=== PATIENT | female | born 1965 | race Caucasian/White ===

== ENCOUNTER 2016-10-08 10:56 | Day surgery (SDC) | payer MEDICAID ==
[~2016-10-08] VITALS: Ht 157.5 cm; Wt 81.8 kg
[2016-10-08 12:09] LABS: BASOPHILS 0.2 % (0.0-2.0); HEMATOCRIT 43.1 % (36.0-48.0); HEMOGLOBIN 14.6 g/dL (12-16); IMMATURE GRANULOCYTES 0.2 % (0-5); LYMPHOCYTES 45.5 % (15-50); MCH 31.8 pg (26.0-34.0); MCHC 33.9 g/dL (31.0-37.0); MCV 93.9 fL (80.0-100.0); MEAN PLATELET VOLUME 10.9 fL (7.4-10.4); MONOCYTES 6.5 % (2-11); NEUTROPHILS 46.6 % (40-80); PLATELET COUNT 114 10x3/uL (130-400); RBC 4.59 10x6/uL (4.00-5.40); RDW 12.5 % (11.5-14.5); WBC 5.8 10x3/uL (4.8-10.8)
[2016-10-08 12:18] LABS: INR 1.02 (0.85-1.17); PROTIME 13.3 SECONDS (11.6-15.0)
[2016-10-08 12:26] LABS: ALBUMIN 3.3 g/dL (3.4-5.0); ANION GAP 10.5 mmol/L (8-16); BILIRUBIN - TOTAL 0.5 mg/dL (0.2-1.3); CALCIUM 9.4 mg/dL (8.5-10.1); CARBON DIOXIDE 32.3 mmol/L (21.0-32.0); POTASSIUM - SERUM 3.8 mmol/L (3.5-5.1); PROTEIN - SERUM 7.2 g/dL (6.4-8.2)
[2016-10-08] MEDS ORDERED: ABILIFY20 MG PO (12:37)
[2016-10-08] MEDS ORDERED: ALBUTEROL1.25 MG/3 INH (12:37)
[2016-10-08] MEDS ORDERED: DICLOFENAC SODI50 MG PO (12:38)
[2016-10-08] MEDS ORDERED: COMBIVENT RESPIM4 GM INH (12:38)
[2016-10-08] MEDS ORDERED: NEURONTIN 300300 MG PO (12:39)
[2016-10-08] MEDS ORDERED: KEPPRA500 MG PO (12:39)
[2016-10-08] MEDS ORDERED: REMERON45 MG PO (12:39)
[2016-10-08] MEDS ORDERED: EFFEXOR37.5 MG PO (12:40)
[2016-10-08] MEDS ORDERED: OXYCODONE HCL E20 MG PO (12:40)
[2016-10-08] MEDS ORDERED: TRAZODONE HCL150 MG PO (12:40)
[2016-10-08] MEDS ORDERED: BACLOFEN20 M1 PO (12:41)
[2016-10-08 12:47] VITALS: BP 97/67; Ht 157.5 cm; Wt 81.8 kg
--- NOTE | 2016-10-08 14:25 | NUR ---
REPORT FROM DANIEL MARCANO. PT SITTING WITH HOB ELEVATED. ON 2L O2 NC, PT WITH COPD/SMOKING HISTORY, SAT @ 94%. VSS. NO C/O PAIN OR THROAT SORENESS. FULL LIQUIDS OFFERED, COFFEE REQUESTED. WILL MONITOR.
--- NOTE | 2016-10-08 15:42 | NUR ---
PT SITTING UP IN BED. 1525- IV D/C'D, PT TOLERATED 1530- DISCHARGE INSTRUCITON COMPLETED AND SIGNED. PT VERBALIZED UNDERSTANDING. 1540- D/C'D VIA WHEELCHAIR WITH BROTHER.
--- NOTE | 2016-10-20 12:04 | OP ---
PATIENT NAME: PREMA SÁNCHEZ MEDICAL RECORD: [id number] :61 LOCATION:[facility] ADMISSION DATE: SURGEON: LINDSAY CHAVEZ DO DATE OF OPERATION: 10/08/2016 PROCEDURE: EGD. SCOPE: Olympus video gastroscope. MEDICATIONS: An 80 mg of propofol per anesthesia. INDICATIONS: History of hepatitis C virus and esophageal variceal screening as well as epigastric pain and heartburn. FINDINGS: Informed consent was given. The patient was made comfortable with the above medication. After reaching an adequate level of sedation by slow IV push, the patient was placed in the left side. The endoscope was then advanced under direct visualization through the mouth to the second portion of the duodenum. The proximal and middle thirds of the esophagus appeared normal. In the distal third of the esophagus, there was some minimal grade I to grade II esophageal varices. There were no bleeding stigmata and no banding was performed. There was some mild reflux esophagitis noted at the GE junction. The scope was advanced into the stomach where diffuse [id number]-[id number] portal hypertensive gastropathy was visualized. The scope was retroflexed to view the cardia where a mild hiatal hernia was visualized. This was of the sliding type. Scope was then advanced down to the antrum and prepyloric region where a small superficial gastric ulcer was visualized right at the prepyloric area. The scope was advanced into the bulb and second portion of the duodenum where the mucosa was normal. The scope was then withdrawn from the patient. The patient tolerated the procedure well and there were no complications. IMPRESSION: 1. Grade I to II esophageal varices. 2. Mild reflux esophagitis at the gastroesophageal junction. 3. Portal hypertensive gastropathy. 4. Hiatal hernia. 5. Gastric ulcer. PLAN AND RECOMMENDATIONS: 1. Continue current medications. 2. Add a PPI at 40 mg equivalent daily for 8 weeks. 3. Repeat EGD in 1 year for variceal screening. 4. Follow up in the clinic as needed. TRANSINT:[id number] Voice Confirmation ID: [id number] DOCUMENT ID: [id number] LINDSAY CHAVEZ DO at 1204 CC: [id number] DICTATION DATE: 10/08/16 1402 WARP KNIT OPERATOR: 10/08/162109 [facility] 10/08/16 [facility] [address] [place] [address]
== END 2016-10-08 15:40 | disposition home or self-care (01) ==
LOC: D.OPS 10:56
PROVIDERS: Anesthesiology
DX: R10.13 Epigastric pain (principal); K44.9 Diaphragmatic hernia without obstruction or gangrene; I85.00 Esophageal varices without bleeding; K76.6 Portal hypertension; K31.89 Other diseases of stomach and duodenum; K25.9 Gastric ulcer, unspecified as acute or chronic, without hemorrhage or perforation

== ENCOUNTER 2017-02-25 13:24 | Day surgery (SDC) | payer MEDICAID ==
[~2017-02-25] VITALS: Ht 157.5 cm; Wt 83.2 kg
[~2017-02-25 13:24] MED LIST: ABILIFY20 MG PO; ALBUTEROL1.25 MG/3 INH; BACLOFEN20 M1 PO; COMBIVENT RESPIM4 GM INH; DICLOFENAC SODI50 MG PO; EFFEXOR37.5 MG PO; KEPPRA500 MG PO; NEURONTIN 300300 MG PO; OXYCODONE HCL E20 MG PO; REMERON45 MG PO; TRAZODONE HCL150 MG PO
[2017-02-25 14:27] VITALS: BP 118/68; Ht 157.5 cm; Wt 83.2 kg
[2017-02-25 14:54] LABS: HEMATOCRIT 43.9 % (36.0-48.0); HEMOGLOBIN 15.1 g/dL (12-16); MCH 31.7 pg (26.0-34.0); MCHC 34.4 g/dL (31.0-37.0); MEAN PLATELET VOLUME 10.1 fL (7.4-10.4); RBC 4.77 10x6/uL (4.00-5.40); RDW 12.7 % (11.5-14.5); WBC 8.5 10x3/uL (4.8-10.8)
[2017-02-25 15:04] LABS: APTT 30.4 SECONDS (22.8-39.4); INR 1.06 (0.85-1.17); PROTIME 13.6 SECONDS (11.6-15.0)
--- NOTE | 2017-02-25 15:56 | NUR ---
1550 BACK FROM COLONOSCOPY. RESP EVEN AND NONLABORED. PASSED AIR.
--- NOTE | 2017-02-25 16:34 | NUR ---
1600 PASSED FLATUS. FULL LIQUIDS SERVED.
--- NOTE | 2017-02-25 16:41 | NUR ---
1630 IV DCD CATHETER INTACT. DISCHARGE INSTRUCTIONS GIVEN.
--- NOTE | 2017-02-25 16:43 | NUR ---
7296 TO HOME VIA W/C.
--- NOTE | 2017-03-01 08:17 | OP ---
PATIENT NAME: PREMA SÁNCHEZ MEDICAL RECORD: [id number] :61 LOCATION:[facility] ADMISSION DATE: SURGEON: LINDSAY CHAEVZ DO DATE OF OPERATION: 02/25/2017 PROCEDURE: Colonoscopy. INDICATIONS: Left lower quadrant abdominal pain and chronic constipation. SCOPE: Olympus video pediatric colonoscope. MEDICATIONS: Propofol 300 mg IV per anesthesia. WITHDRAWAL TIME: 13 minutes. ESTIMATED BLOOD LOSS: None. COMPLICATIONS: None. FINDINGS: Informed consent was given. The patient was made comfortable with the above medication. After reaching an adequate level of sedation by slow IV push, the patient was placed on her left side. A digital rectal examination was performed and was normal. The endoscope was then advanced under direct visualization through the rectum to the cecum with visualization of the appendiceal orifice and ileocecal valve. The scope was slowly withdrawn and mucosa was carefully examined. The prep quality on this examination was poor. The obrien of the colon were clean and visualized, but there were sections of bowel that were full of liquid with solid material that could not be suctioned. This made visualization of all of the obrien impossible. Of what segments could be seen, there were no polyps, diverticula or any other abnormalities. The endoscope was retroflexed in the rectum with a normal-appearing rectal wall. The scope was withdrawn from the patient. The patient tolerated the procedure well and there were no complications. IMPRESSION: Inadequate prep, otherwise normal colonoscopy. PLAN AND RECOMMENDATIONS: 1. Discharge home when recovery parameters are met. 2. Recall colonoscopy in 1 year. 3. Notify the GI clinic if symptoms return. At this time, she denies any left lower quadrant abdominal pain or constipation. 4. We will plan for a colonoscopy in 1 year's time for screening of malignant neoplasms. TRANSINT:[id number] Voice Confirmation ID: [id number] DOCUMENT ID: [id number] LINDSAY CHAVEZ DO at 0817 CC: [id number] DICTATION DATE: 02/25/17 1537 TRANSPORTATION DIRECTOR: 02/25/17 1938 [facility] 02/25/17 [place] [address]
== END 2017-02-25 16:35 | disposition home or self-care (01) ==
LOC: D.OPS 13:24
PROVIDERS: Anesthesiology
DX: R10.32 Left lower quadrant pain (principal); K59.09 Other constipation; J44.9 Chronic obstructive pulmonary disease, unspecified; Z01.812 Encounter for preprocedural laboratory examination

== ENCOUNTER 2017-11-10 13:04 | Day surgery (SDC) | payer MEDICARE ==
[~2017-11-10] VITALS: Ht 157.5 cm; Wt 75.5 kg
--- NOTE | ~2017-11-10 | OP ---
PATIENT NAME: PREMA SÁNCHEZ MEDICAL RECORD: [id number] :61 LOCATION:[facility] ADMISSION DATE: SURGEON: LINDSAY CHAVEZ DO DATE OF OPERATION: 11/10/2017 PROCEDURE: EGD. INDICATIONS: Esophageal varices surveillance. Her last endoscopy was 10/08/2016. SCOPE: Olympus video gastroscope. MEDICATIONS: Propofol 250 mg IV per anesthesia. ESTIMATED BLOOD LOSS: None. COMPLICATIONS: None. FINDINGS: Informed consent was given. The patient was made comfortable with the above medication. After reaching an adequate level of sedation by slow IV push, the patient was placed on her left side. The endoscope was advanced under direct visualization through the mouth to the second portion of the duodenum. The upper, middle, and lower thirds of the esophagus appeared normal without obvious evidence of esophageal varices. At the GE junction, there was some mild [place] class A reflux-induced esophagitis. The endoscope was advanced beyond the GE junction into the stomach and retroflexed to view the cardia which revealed a small sliding hiatal hernia. The mucosa of the entire stomach appeared normal other than some congestion and some erythema. Appearances were consistent with mild portal hypertensive gastropathy. There were no ulcers or erosions visualized on today's examination. The endoscope was advanced beyond the pylorus into the duodenum where the entire examined duodenum appeared normal. The endoscope was then withdrawn from the patient. The patient tolerated the procedure well and there were no complications. IMPRESSION: 1. [place] class A reflux-induced esophagitis. 2. Small sliding hiatal hernia. 3. Portal hypertensive gastropathy, which appears mild. PLAN AND RECOMMENDATIONS: 1. Discharge home when recovery parameters are met. 2. Continue current diet. 3. Continue current medications. 4. Follow up in GI clinic as needed. 5. Repeat EGD in 2 years for further surveillance of varices and portal hypertensive gastropathy. If, at that time, there were no varices present it may be considered to discontinue surveillance endoscopies. TRANSINT:[id number] Voice Confirmation ID: [id number] DOCUMENT ID: [id number] OPERATIVE REPORT [id number] PREMA SÁNCHEZ LINDSAY CHAVEZ DO at 0849 CC: [id number] DICTATION DATE: 11/10/17 1529 ECONOMIC GEOGRAPHER: 11/10/17 1540 DEP SDC 11/10/17 [facility] [address] [place] [address]
[2017-11-10 14:15] LABS: HEMATOCRIT 42.7 % (36.0-48.0); HEMOGLOBIN 15.2 g/dL (12-16); MCHC 35.6 g/dL (31.0-37.0); MEAN PLATELET VOLUME 9.7 fL (7.4-10.4); RBC 4.91 10x6/uL (4.00-5.40); RDW 12.7 % (11.5-14.5); WBC 8.9 10x3/uL (4.8-10.8)
[2017-11-10] MEDS ORDERED: SOMA350 MG (14:21)
[2017-11-10] MEDS ORDERED: ATIVAN1 MG PO (14:22)
[2017-11-10 14:30] VITALS: Ht 157.5 cm; Wt 75.5 kg
[2017-11-10 14:35] LABS: ALBUMIN 3.8 g/dL (3.4-5.0); ANION GAP 14.9 mmol/L (8-16); BILIRUBIN - TOTAL 0.62 mg/dL (0.2-1.3); CARBON DIOXIDE 26.8 mmol/L (21.0-32.0); POTASSIUM - SERUM 3.7 mmol/L (3.5-5.1); PROTEIN - SERUM 7.5 g/dL (6.4-8.2)
[2017-11-10 14:38] LABS: INR 1.09 (0.85-1.17); PROTIME 13.7 SECONDS (11.6-15.0)
[2017-11-10 14:39] LABS: APTT 31.5 SECONDS (22.8-39.4)
== END 2017-11-10 16:22 | disposition home or self-care (01) ==
LOC: D.OPS 13:04
PROVIDERS: Anesthesiology; Internal Medicine Gastroenterology
DX: K21.0 Gastro-esophageal reflux disease with esophagitis (principal); K44.9 Diaphragmatic hernia without obstruction or gangrene; K76.6 Portal hypertension; K31.89 Other diseases of stomach and duodenum; Z01.812 Encounter for preprocedural laboratory examination

== ENCOUNTER 2018-05-30 11:29 | Day surgery (SDC) | payer MEDICARE ==
[~2018-05-30] VITALS: Ht 157.5 cm; Wt 75.5 kg
--- NOTE | ~2018-05-30 | OP ---
PATIENT NAME: PREMA SÁNCHEZ MEDICAL RECORD: [id number] :61 [facility] ADMISSION DATE: SURGEON: LINDSAY CHAVEZ DO DATE OF OPERATION: 05/30/2018 PROCEDURE: Colonoscopy with polypectomy. INDICATION FOR PROCEDURE: Screening colonoscopy. Her last colonoscopy was on 11/10/2017 and this was an inadequate prep. SCOPE: Olympus video pediatric colonoscope. MEDICATIONS: Propofol 440 mg IV per anesthesia. WITHDRAWAL TIME: 21 minutes. ESTIMATED BLOOD LOSS: Minimal. COMPLICATIONS: None. FINDINGS: Informed consent was given. The patient was made comfortable with the above medication. After reaching an adequate level of sedation by slow IV push, the patient was placed on her left side. A digital rectal examination was performed and was normal. The endoscope was then advanced under direct visualization through the rectum to the cecum, confirmed by the presence of the appendiceal orifice and the ileocecal valve. The endoscope was slowly withdrawn and the mucosa was carefully examined. The prep quality was good. There were 5 polyps visualized on today's examination. The first was located in the cecum. There was a benign-appearing flat polyp, which appeared consistent with a sessile serrated adenoma. It measured approximately 1 cm to 1.2 cm in diameter. It was removed using endoscopic mucosal resection technique utilizing an injection of isotonic saline for a pillow. A hot snare was then used to completely remove the polyp in one piece. The surrounding tissue was cauterized further. To close the defect and prevent bleeding, a single Endoclip was used to oppose the tissue. The endoscope was then withdrawn further. In the ascending colon, there were 2 benign-appearing sessile polyps, which ranged in size from 3-6 mm in diameter. They were removed using hot forceps. In the transverse colon, there was another benign-appearing sessile polyp, which measured approximately 4 mm in diameter that was removed using hot forceps. In the descending colon, there was one more polyp, which was benign appearing and sessile. It measured approximately 3 mm in diameter. It was removed using hot forceps. Retroflexion was performed in the rectum with a normal-appearing rectal wall. The endoscope was then withdrawn from the patient. The patient tolerated the procedure well and there were no complications. IMPRESSION: Multiple polyps as described above, removed using combination of hot forceps and endoscopic mucosal resection technique. PLAN AND RECOMMENDATIONS: 1. Discharge home when recovery parameters are met. 2. Followup biopsy specimen results. 3. High-fiber diet. 4. Continue current medications. 5. Recall colonoscopy in 2 years. OPERATIVE REPORT [id number] [facility] TRANSINT:[id number] Voice Confirmation ID: [id number] DOCUMENT ID: [id number] LINDSAY CHAVEZ DO at 1739 CC: [id number] DICTATION DATE: 05/30/18 1503 ENDO TECH: 05/30/18 1717 [facility] 05/30/18 [id number] [place] [address]
[~2018-05-30 11:29] MED LIST changes: +ATIVAN1 MG PO; +SOMA350 MG
[2018-05-30 11:50] LABS: BASOPHILS 0.1 % (0-2); EOSINOPHILS 0.5 % (0-7); HEMATOCRIT 45.3 % (36.0-48.0); HEMOGLOBIN 16.1 g/dL (12-16); LYMPHOCYTES 35.8 % (15-50); MCH 31.1 pg (26.0-34.0); MCHC 35.5 g/dL (31.0-37.0); MCV 87.6 fL (80.0-100.0); MEAN PLATELET VOLUME 10.2 fL (7.4-10.4); MONOCYTES 6.3 % (2-11); NEUTROPHILS 57.3 % (40-80); PLATELET COUNT 162 10x3/uL (130-400); RBC 5.17 10x6/uL (4.00-5.40); RDW 12.5 % (11.5-14.5); WBC 8.5 10x3/uL (4.8-10.8)
[2018-05-30 11:54] LABS: APTT 30.6 SECONDS (22.8-39.4); PROTIME 12.8 SECONDS (11.6-15.0)
[2018-05-30 12:00] LABS: ANION GAP 11.7 mmol/L (8-16); CALCIUM 9.4 mg/dL (8.5-10.1); CARBON DIOXIDE 31.1 mmol/L (21.0-32.0); POTASSIUM - SERUM 3.8 mmol/L (3.5-5.1)
[2018-05-30] MEDS ORDERED: PROTONIX40 MG PO (12:19)
[2018-05-30 12:25] VITALS: BP 114/72; Ht 157.5 cm; Wt 75.5 kg
== END 2018-05-30 15:45 | disposition home or self-care (01) ==
LOC: D.OPS 11:29
PROVIDERS: Anesthesiology
DX: Z12.11 Encounter for screening for malignant neoplasm of colon (principal); D12.2 Benign neoplasm of ascending colon; D12.0 Benign neoplasm of cecum; K63.5 Polyp of colon; Z01.812 Encounter for preprocedural laboratory examination